=== PATIENT | female | born 1985 | race Caucasian/White ===

== ENCOUNTER 2017-11-15 15:53 | Emergency (ER) | payer OTHER, MEDICAID ==
[2017-11-15] MEDS: CEFTRIAXONE 250 MG INJ IM (16:42)
[2017-11-15] MEDS: AZITHROMYCIN 250 MG TAB PO (16:42)
[2017-11-15] MEDS: LIDOCAINE 1% (MDV) 10 ML INJ INFIL (16:48)
[2017-11-15 16:52] LABS: URINE BLOOD (Dip) POC Trace-intact (NEGATIVE); URINE GLUCOSE (Dip) POC Negative (NEGATIVE); URINE KETONES (Dip) POC Trace (NEGATIVE); URINE LEUKOCYTE EST (Dip) POC Negative (NEGATIVE); URINE NITRITE (Dip) POC Negative (NEGATIVE); URINE TOTAL PROTEIN POC Trace (NEGATIVE)
[2017-11-15 16:52] LABS: URINE PH (Dip) POC 5.5 (5.0-8.5)
== END 2017-11-15 18:08 | disposition home or self-care (01) ==
LOC: FTE 15:53
DX: A60.09 Herpesviral infection of other urogenital tract (principal)
CPT/HCPCS: 81003; 81025; 87086; 87591; 96372; 99284-25

== ENCOUNTER 2018-06-02 21:33 | Emergency (ER) | payer OTHER, MEDICAID ==
[2018-06-03] MEDS: ACETAMINOPHEN 325 MG TAB PO (01:07)
[2018-06-03] MEDS: KETOROLAC 15 MG INJ IM (01:16)
== END 2018-06-03 02:50 | disposition home or self-care (01) ==
LOC: FTE 21:33
DX: S60.222A Contusion of left hand, initial encounter (principal); S80.812A Abrasion, left lower leg, initial encounter; S29.012A Strain of muscle and tendon of back wall of thorax, initial encounter; V43.52XA Car driver injured in collision with other type car in traffic accident, initial encounter
CPT/HCPCS: 73130; 73130-LT; 81025; 96372; 99284-25